=== PATIENT | female | born 1960 | race Caucasian/White ===

== ENCOUNTER 2016-05-04 16:30 | Outpatient (CLI) | payer OTHER ==
[~2016-05-04 16:30] MED LIST: ASPIRIN ADULT L81 M1 PO; ATENOLOL25 MG PO; CALCIUM + D PO; CLIMARA0.1 MG; DIAZEPAM5 MG PO; FLAX OIL PO; FLONASE AL50 MCG/ACT; HYDROXYZINE HCL25 MG PO; IRON325 MG PO; LEVOTHYROXINE50 MCG PO; MELATONIN3 MG PO; OMEPRAZOLE20 M1 PO; TRICOR145 MG PO; VERAPAMIL HCL240 M1 PO; ZOLOFT25 MG PO; ZYRTEC ALLERGY10 MG
== END 2016-05-04 23:00 ==
LOC: LAB SRH 16:30
DX: R53.83 Other fatigue (principal); R11.0 Nausea
CPT/HCPCS: 90074; 90100; 90616; 92235; 93140; 95059

== ENCOUNTER 2016-07-20 15:44 | Outpatient (CLI) | payer OTHER ==
--- NOTE | 2016-07-20 16:17 | DIAGNOSTIC IMAGING REPORT ---
PROCEDURE: MG BILATERAL SCREENING W/CAD INDICATION: SCREENING TECHNIQUE: Bilateral CC and MLO digital views. COMPARISON: Compared to 12/24/2014, 08/17/2013, and 06/09/2012. FINDINGS: Computer-aided detection applied. Moderately dense parenchymal pattern. Interval resolution of 1.8 cm central left breast cyst. Otherwise, there has been change. IMPRESSION: 1. Negative mammogram RESULT CODE: 1- Negative. A. A negative report should not delay biopsy if a dominant or clinically suspicious mass is present. 10-15% of cancers are not identified by x-ray. B. A negative report may reinforce clinical impression. C. Adenosis and dense breasts may obscure an underlying neoplasm. D. False positive reports average 6-10%. E.. A yearly screening mammogram is recommended. A reminder letter will be scheduled.
== END 2016-07-20 23:00 ==
LOC: MAM SRH 15:44
DX: Z12.31 Encounter for screening mammogram for malignant neoplasm of breast (principal)